=== PATIENT | male | born 1965 | race Caucasian/White ===

== ENCOUNTER 2021-10-04 17:54 | Inpatient (IN) | payer MEDICAID ==
[~2021-10-04] VITALS: Ht 160 cm; Wt 83.5 kg
[2021-10-04 20:10] VITALS: BP 147/76
--- NOTE | 2021-10-04 20:20 | NUR ---
RN NOTES PT RECEIVED IN RM 324-1 FROM [facility] WITH MILES TWO PERSONEL ASSIST.PT CAME FROM [facility] AAOX[facility].NEHEMIAS WELL ON RM AIR NO SIGN SOB/DISTRESS NOTED.BREATHING EVEN AND UNLABORED.NO COMPLAINE OF PAIN/DISCOMFORT AT THIS TIME.URDU SPEAKING.IV ACCESS RA 20G.PATENT AND INTACT.PT REORIENT THE RM AND VERBALLIZE UNDERSTANDING.KEPT PT COMFORTABLE HOB ELEVATED.CALL LIGHT WITHIN REACH.BED LOW AND LOCKED POSITION.WILL CONTINUE TO MONITOR.
[2021-10-04] MEDS ORDERED: METF-440 PO (21:41)
[2021-10-04] MEDS ORDERED: HYDROCODONE/APAP 10/325MG TABLET PO PRN (22:00)
[2021-10-04] MEDS ORDERED: MAGNESIUM HYDROXIDE 30 ML UDC PO PRN (22:00)
[2021-10-04] MEDS ORDERED: DEXTROSE 50%-WATER 50 ML DISP.SYRIN IV PRN (22:00)
[2021-10-04] MEDS ORDERED: ACETAMINOPHEN 325 MG TABLET PO PRN (22:00)
[2021-10-04] MEDS ORDERED: ZOLPIDEM TARTRATE 5 MG TABLET PO PRN (22:00)
[2021-10-04] MEDS ORDERED: Z GUARD REMEDY 4 OZ OINT TP PRN (22:00)
[2021-10-04] MEDS ORDERED: MAG HYDROX/AL HYDROX/SIMETH 30 ML UDC PO PRN (22:00)
[2021-10-04] MEDS: IV NS 0.9% 1,000 ML IV PRN (22:02)
[2021-10-04] MEDS: *INSULIN REGULAR(HUMULIN R)HUM 100 UNIT/ML VIAL SQ PRN (23:17)
[2021-10-04] MEDS: BLOOD SUGAR DIAGNOSTIC 1 EACH STRIP VI SCH (23:18)
[2021-10-04] MEDS ORDERED: VANCOMYCIN 1.5 GM in IV D5W 500ml IV ONE (23:30)
[2021-10-04] MEDS ORDERED: PIPERACILLIN /TAZOBACTAM 3.375 G VIAL IV ONE (23:35)
[2021-10-04] MEDS ORDERED: VANCOMYCIN 1 GM VIAL ONE ×2 (23:36→23:37)
[2021-10-04] MEDS: ONDANSETRON HCL/PF 4 MG/2 ML VIAL IVP PRN (23:38)
[2021-10-05] MEDS: PIPERACILLIN /TAZOBACTAM 3.375 G in IV D5W 50 ML IV SCH ×5 (00:05→23:12)
[2021-10-05] MEDS ORDERED: PIPERACILLIN /TAZOBACTAM 3.375 G VIAL IV ONE (05:17)
--- NOTE | 2021-10-05 05:45 | NUR ---
RN CLOSING NOTES PT IN BED SLEEPING NEHEMIAS WELL ON RM AIR SATING 98% NO SIGN SOB/DISTRESS NOTED.BREATHING EVEN AND UNLABORED.NO COMPLAIN OF PAIN/DISCOMFORT.ALL DUE MEDS GIVEN PO ORDER.ALL NEEDS ATTENTED.IV SITE ON RA G20 PATENT AND INTACT.CALL LIGHT WITHIN REACH.WILL ENDORSED TO NEXT SHIFT.
[2021-10-05] MEDS: ONDANSETRON HCL/PF 4 MG/2 ML VIAL IVP PRN ×4 (06:13→17:26)
[2021-10-05] MEDS: *INSULIN REGULAR(HUMULIN R)HUM 100 UNIT/ML VIAL SQ PRN ×2 (06:38→21:40)
[2021-10-05 06:39] LABS: BASOPHILS % (AUTO) 0.2 % (0.0-2.0); HEMATOCRIT 37 % (39-51); HEMOGLOBIN 12.2 g/dL (13.5-17.5); LYMPHOCYTES % (AUTO) 7.6 % (20.0-44.0); MEAN CORPUSCULAR HGB CONC 33 g/dl (31.0-36.0); MEAN CORPUSCULAR VOLUME 88 fL (80-96); MONOCYTES # (AUTO) 0.7 K/uL (0.1-1.30); MONOCYTES % (AUTO) 5.4 % (2.0-12.0); NEUTROPHILS # (AUTO) 11.6 K/uL (1.8-8.9); NEUTROPHILS % (AUTO) 86.8 % (43.0-81.0); PLATELET COUNT (AUTO) 256 K/uL (150-450); RED BLOOD CELL COUNT(AUTO) 4.15 MIL/uL (4.5-6.0); WHITE BLOOD COUNT (AUTO) 13.3 K/uL (4.3-11.0)
[2021-10-05 07:21] LABS: CALCIUM, SERUM 9.2 mg/dL (8.5-10.1); CREATININE 0.8 mg/dL (0.6-1.3); MAGNESIUM 2.2 mg/dL (1.8-2.4); POTASSIUM 3.9 mmol/L (3.5-5.1)
--- NOTE | 2021-10-05 07:30 | NUR ---
RN MS NOTES PT IN BED, AWAKE, ALERT AND ORIENTED, NO COMPLAINT OF PAIN, NOT IN DISTRESS, CALL LIGHT WITHIN REACH, LEFT FOOT DRESSING DRY AND INTACT, NO BLEEDING OR DISCHARGE NOTED, NEEDS ATTENDED.
[2021-10-05 08:00] VITALS: BP 145/78
--- NOTE | 2021-10-05 09:13 | NUR ---
WOUND CARE CONSULT: REVIEWED CHART, NURSING DOCUMENTATION AND DISCUSSED WITH NURSING STAFF AND PSYCHIATRIC ORDERLY. PT WAS TRANSFERRED FROM OUTSIDE HOSPITAL. DR FIELDS NOTIFIED OF DPM CONSULT. DISCUSSED SKIN PROTECTION WITH NURSING STAFF. MD IN AGREEMENT WITH PLAN OF CARE.
[2021-10-05] MEDS: BLOOD SUGAR DIAGNOSTIC 1 EACH STRIP VI SCH ×4 (09:46→21:40)
[2021-10-05] MEDS: VANCOMYCIN 1 GM in IV D5W 250 ML IV SCH ×2 (10:24→18:15)
[2021-10-05] MEDS: INSULIN REGULAR, HUMAN 100 UNIT/ML 3 ML VIAL SQ PRN ×2 (12:27→18:17)
[2021-10-05 16:00] VITALS: BP 182/90
[2021-10-05] MEDS: IV NS 0.9% 1,000 ML IV PRN (18:25)
--- NOTE | 2021-10-05 19:00 | NUR ---
RN MS NOTES PT IN BED, RESTING, NO COMPLAINT OF PAIN OR ANY DISCOMFORT, RESPIRATIONS NORMAL, CALL LIGHT WITHIN REACH, WITH EPISODES OF N/V, ZOFRAN GIVEN ORDERED WITH HELP, IV FLUIDS INFUSING WELL, FOR LEFT 2ND TOE AMPUTATION TOMORROW, PT INFORMED AND CONSENTS SIGNED, ALL NEEDS ATTENDED.
--- NOTE | 2021-10-05 19:36 | NUR ---
MS RN OPENING NOTES PATIENT RECEIVED RESTING IN BED COMFORTABLY, A/OX2-3 MALIAN SPEAKING; PATIENT REPORTING NAUSEA/VOMITING INTERMITTENTLY THROUGHOUT HOSPITALIZATION; PATIENT POSSIBLE PROCEDURE TOMORROW AM; WILL FOLLOW UP. R HAND #20G INTACT AND PATENT, FLUSHING WELL; NO S/S OF REDNESS OF INFILTRATION NOTED; SAFETY PRECAUTIONS IMPLEMENTED; BED LOCKED IN LOW POSITION; SIDE RAILSX2; CALL LIGHT WITHIN REACH, WILL CONT PLAN OF CARE
[2021-10-05 20:00] VITALS: BP 157/83
[2021-10-05 20:46] LABS: BILIRUBIN,URINE SMALL (NEGATIVE); COLOR,URINE YELLOW (YELLOW); LEUKOCYTE ESTERASE ,URINE NEGATIVE (NEGATIVE); NITRITE, URINE NEGATIVE (NEGATIVE); PROTEIN,URINE 100 mg/dl (NEGATIVE); UGLUCOSE 500 MG/DL mg/dL (NEGATIVE); UROBILINOGEN,URINE 0.2 EU/dL (0.2)
[2021-10-05 21:16] LABS: BACTERIA,URINE Few /HPF (None Seen); SQUAMOUS EPITHELIAL CELL,UR Rare /HPF (None Seen); WBC,URINE 0-2 /HPF (0-3)
[2021-10-05 21:17] LABS: URINE AMORPHOUS URATE Many /HPF (None Seen)
[2021-10-05] MEDS: ATORVASTATIN 40 MG TABLET PO SCH (21:23)
--- NOTE | 2021-10-05 21:41 | NUR ---
MS RN NOTE PATIENT BLOOD SUGAR 208, PATIENT TO BE NPO MIDNIGHT FOR POSSIBLE PROCEDURE IN AM; PATIENT UNABLE TO TOLERATE PO INTAKE D/T NAUSEA AND VOMITING; NO COVERAGE GIVEN; PATIENT RECEIVING IVF, TOLERATING WELL; CHARGE NURSE MADE AWARE
--- NOTE | 2021-10-05 21:53 | NUR ---
MS RN NOTE PATIENT HAS BEEN EXPERIENCING INTERMITTENT NAUSEA AND VOMITING SINCE ADMISSION; PATIENT HAS BEEN RECEIVING ZOFRAN Q6HR WITH MINIMAL RELIEF; CHARGE NURSE MADE AWARE, SPOKE WITH EMMANUEL LAUREN REGARDING PATIENT SITUATION; PER SAMPLE DISPLAY PREPARER OKAY FOR REGLAN 10MG IV Q6HR PRN, ORDERS RECEIVED AND CARRIED OUT
[2021-10-05] MEDS ORDERED: METOCLOPRAMIDE HCL 10 MG/2 ML VIAL IV PRN (22:00)
[2021-10-06] VITALS (11 sets, daily range): BP systolic 122–177; BP diastolic 62–93
[2021-10-06] MEDS: VANCOMYCIN 1 GM in IV D5W 250 ML IV SCH ×2 (01:47→11:17)
[2021-10-06] MEDS: PIPERACILLIN /TAZOBACTAM 3.375 G in IV D5W 50 ML IV SCH ×4 (05:03→23:53)
[2021-10-06] MEDS: INSULIN REGULAR, HUMAN 100 UNIT/ML 3 ML VIAL SQ PRN ×2 (06:31→18:02)
[2021-10-06] MEDS: BLOOD SUGAR DIAGNOSTIC 1 EACH STRIP VI SCH ×4 (06:31→22:42)
[2021-10-06 06:38] LABS: BASOPHILS % (AUTO) 0.2 % (0.0-2.0); HEMATOCRIT 38 % (39-51); HEMOGLOBIN 12.9 g/dL (13.5-17.5); LYMPHOCYTES # (AUTO) 1.2 K/uL (0.8-4.8); LYMPHOCYTES % (AUTO) 9.5 % (20.0-44.0); MEAN CORPUSCULAR HGB CONC 34 g/dl (31.0-36.0); MEAN CORPUSCULAR VOLUME 87 fL (80-96); MONOCYTES # (AUTO) 0.7 K/uL (0.1-1.30); MONOCYTES % (AUTO) 5.5 % (2.0-12.0); NEUTROPHILS # (AUTO) 11.2 K/uL (1.8-8.9); NEUTROPHILS % (AUTO) 84.8 % (43.0-81.0); PLATELET COUNT (AUTO) 296 K/uL (150-450); RED BLOOD CELL COUNT(AUTO) 4.32 MIL/uL (4.5-6.0); WHITE BLOOD COUNT (AUTO) 13.2 K/uL (4.3-11.0)
--- NOTE | 2021-10-06 06:51 | NUR ---
MS RN CLOSING NOTES PATIENT RESTING IN BED COMFORTABLY, A/OX2-3, MALAWIAN SPEAKING; PATIENT STILL EXPERIENCING NAUSEA AND VOMITING THROUGHOUT SHIFT WITH MINIMAL RELIEF FROM REGLAN AND ZOFRAN; PROCEDURE SCHEDULED 1300, WILL FOLLOW UP. R HAND #20G INTACT AND PATENT, FLUSHING WELL; NO S/S OF REDNESS OF INFILTRATION NOTED; ALL NEEDS RENDERED; SAFETY PRECAUTIONS IMPLEMENTED; BED LOCKED IN LOW POSITION; SIDE RAILSX2; CALL LIGHT WITHIN REACH, WILL ENDORSE ANAM TO ONCOMING SHIFT
[2021-10-06 07:13] LABS: CALCIUM, SERUM 9.6 mg/dL (8.5-10.1); CREATININE 0.8 mg/dL (0.6-1.3); MAGNESIUM 2.2 mg/dL (1.8-2.4); PHOSPHORUS 2.7 mg/dL (2.5-4.9); POTASSIUM 3.4 mmol/L (3.5-5.1)
--- NOTE | 2021-10-06 07:30 | NUR ---
RN MS NOTES PT IN BED, AWAKE, ALERT AND ORIENTED, NO COMPLAINT OF PAIN, NOT IN DISTRESS, CALL LIGHT WITHIN REACH, NO EPISODE OF NAUSEA OR VOMITING AT THIS TIME, KEPT NPO FOR TODAY'S SURGERY, LEFT FOOT DRESSING DRY AND INTACT, NO BLEEDING OR DISCHARGE NOTED, NEEDS ATTENDED.
[2021-10-06] MEDS: GLUCERNA SHAKE 237 ML CAN PO SCH (09:00)
[2021-10-06] MEDS: POTASSIUM CL. PREMIX PERIPHER. 50 ML IV SCH ×2 (10:11→15:54)
[2021-10-06] MEDS: hydrALAZINE HCL IV 20 MG VIAL IV PRN (10:54)
--- NOTE | 2021-10-06 10:55 | NUR ---
RN MS NOTES NOTED PT WITH ELEVATED BP 173/92 HR 80, DR. CASTELLON INFORMED, PT NOT COMPLAINING OF PAIN OR ANY DISCOMFORT, ORDERS GIVEN, NOTED AND CARRIED OUT, WILL CONTINUE TO MONITOR.
[2021-10-06] MEDS: METOCLOPRAMIDE HCL 10 MG/2 ML VIAL IV SCH ×3 (11:17→23:50)
[2021-10-06] MEDS ORDERED: ANESTHESIA TRAY IN PYXIS 1 EA TRAY MC ONE (12:00)
[2021-10-06] MEDS ORDERED: BUPIVACAINE 0.5 % PF 150 MG/30 ML VIAL ONE (12:00)
[2021-10-06] MEDS ORDERED: LIDOCAINE 1% INJ 50 ML MDV IJ ONE (12:00)
--- NOTE | 2021-10-06 13:03 | NUR ---
RN MS NOTES REASSESSED PT'S BP AFTER HYDRALAZINE 168/81 HR 84, DR. MURRAY INFORMED AND SAID THAT PT IS OK TO GO TO [facility] FOR [facility]GERY, PT IS PICKED UP BY [facility] STAFF VIA BED IN STABLE CONDITION.
[2021-10-06] MEDS ORDERED: FENTANYL PF 100MCG/2ML AMPUL ONE ×2 (13:13→15:06)
--- NOTE | 2021-10-06 15:48 | NUR ---
RN MS NOTE PATIENT RETURN TO UNIT @ 1540, POST-OP, VIA BED. AWAKE AND ALERT UPON RETURN. NO S/SX OF DISTRESS, SOB. WILL CONTINUE TO MONITOR.
[2021-10-06] MEDS: VANCOMYCIN 1.25 GM in IV D5W 250 ML IV SCH (18:51)
--- NOTE | 2021-10-06 19:14 | NUR ---
RN MS CLOSING NOTES PATIENT CURRENTLY RESTING IN BED. NO C/O PAIN TO SURGICAL SITE (LEFT 2ND TOE). NO S/SX OF DISTRESS. NO C/O NAUSEA AND SOB. DRESSING TO SURGICAL SITE IS CLEAN AND DRY WITH NO SIGN OF BLEEDING & REMAINS ELEVATED. iv SITE PATENT AND FLOWING WELL. REMAINS ON IV ATB TREATMENT. TOLERATED WELL ON SHIFT WITH NO ADVERSE REACTIONS TO MEDICATIONS. VITALS CURRENTLY STABLE. SAFETY MEASURE REMAIN IN PLACE. BED IN LOWEST POSITION, WITH BRAKES LOCKED AND SIDERAILS UP X2. CALL LIGHT WITHIN REACH.
--- NOTE | 2021-10-06 19:48 | NUR ---
MS/TELE/RN RECEIVE PATIENT LYING IN BED APPEARS SLEEPING, APPEARS COMFORTABLE, NO SIGNS OF DISTRESS NOTED, IVF INFUSING, CALL LIGHT IN REACH, FALL PRECAUTIONS PER PROTOCOL IMPLEMENTED, WILL MONITOR.
[2021-10-06] MEDS: ATORVASTATIN 40 MG TABLET PO SCH (22:43)
[2021-10-06] MEDS: *INSULIN REGULAR(HUMULIN R)HUM 100 UNIT/ML VIAL SQ PRN (22:46)
--- NOTE | 2021-10-07 01:10 | NUR ---
MS/TELE/RN PATIENT WAS AWAKE AT AROUND 22:30, PATIENT WAS ALERT AND ORIENTED, ACCU CHEC WAS DONE, DUE MEDS WERE GIVEN. PATIENT IS SLEEPING AT THIS TIME, APPEAR COMFORTABLE, NO SIGNS OF DISTRESS NOTED, CALL LIGHT IN REACH, WILL CONTINUE TO MONITOR.
[2021-10-07] MEDS: VANCOMYCIN 1.25 GM in IV D5W 250 ML IV SCH ×3 (02:29→17:37)
[2021-10-07] MEDS: METOCLOPRAMIDE HCL 10 MG/2 ML VIAL IV SCH ×4 (05:44→23:43)
[2021-10-07] MEDS: PIPERACILLIN /TAZOBACTAM 3.375 G in IV D5W 50 ML IV SCH ×4 (05:44→23:43)
--- NOTE | 2021-10-07 06:02 | NUR ---
MS/TELE/RN PATIENT IS AWAKE, COMFORTABLE, NO SIGNS OF DISTRESS NOTED, CALL LIGHT IN REACH, ALL NEEDS ATTENDED AT THIS TIME, WILL CONTINUE TO MONITOR.
[2021-10-07] MEDS: INSULIN REGULAR, HUMAN 100 UNIT/ML 3 ML VIAL SQ PRN ×3 (06:41→17:42)
[2021-10-07 06:46] LABS: HEMATOCRIT 36 % (39-51); LYMPHOCYTES # (AUTO) 1.1 K/uL (0.8-4.8); LYMPHOCYTES % (AUTO) 8.5 % (20.0-44.0); MEAN CORPUSCULAR HGB CONC 34 g/dl (31.0-36.0); MEAN CORPUSCULAR VOLUME 88 fL (80-96); MONOCYTES # (AUTO) 0.8 K/uL (0.1-1.30); MONOCYTES % (AUTO) 6.2 % (2.0-12.0); NEUTROPHILS # (AUTO) 11.3 K/uL (1.8-8.9); NEUTROPHILS % (AUTO) 85.3 % (43.0-81.0); PLATELET COUNT (AUTO) 313 K/uL (150-450); RED BLOOD CELL COUNT(AUTO) 4.08 MIL/uL (4.5-6.0); WHITE BLOOD COUNT (AUTO) 13.2 K/uL (4.3-11.0)
[2021-10-07] MEDS: BLOOD SUGAR DIAGNOSTIC 1 EACH STRIP VI SCH ×2 (06:52→12:12)
[2021-10-07 07:08] LABS: CREATININE 0.9 mg/dL (0.6-1.3); MAGNESIUM 2.3 mg/dL (1.8-2.4); POTASSIUM 3.8 mmol/L (3.5-5.1)
--- NOTE | 2021-10-07 07:30 | NUR ---
RN MS OPENING NOTES RECEIVED PATIENT SLEEPING COMFORTABLY, A/O X 4 & ARABIC SPEAKER ONLY. NO C/O PAIN TO SURGICAL SITE (LEFT 2ND TOE), CLEAN, DRY, AND INTACT. NO S/SX OF DISTRESS, SOB, AND CHEST PAIN. DRESSING TO SURGICAL SITE IS CLEAN AND DRY WITH NO SIGN OF BLEEDING & REMAINS ELEVATED. iv SITE PATENT AND FLOWING WELL. REMAINS ON IV ATB TREATMENT. TOLERATED WELL ON SHIFT WITH NO ADVERSE REACTIONS TO MEDICATIONS. VITALS CURRENTLY STABLE. SAFETY MEASURE REMAIN IN PLACE. BED IN LOWEST POSITION, WITH BRAKES LOCKED AND SIDERAILS UP X2. CALL LIGHT WITHIN REACH. WILL CONTINUE TO MONITOR FOR ANAM.
[2021-10-07 08:22] VITALS: BP 147/77
[2021-10-07] MEDS: GLUCERNA SHAKE 237 ML CAN PO SCH (09:16)
[2021-10-07] MEDS: ONDANSETRON HCL/PF 4 MG/2 ML VIAL IVP PRN ×2 (09:41→19:35)
[2021-10-07] MEDS: IV NS 0.9% 1,000 ML IV PRN (12:25)
[2021-10-07 15:47] VITALS: BP 169/79
[2021-10-07] MEDS ORDERED: K PHOS NEUTRAL 250 MG TABLET PO ONE (16:00)
[2021-10-07] MEDS ORDERED: DEXTROSE 50%-WATER 50 ML DISP.SYRIN IV PRN (17:30)
[2021-10-07] MEDS: BLOOD SUGAR DIAGNOSTIC 1 EACH STRIP IN SCH ×2 (17:34→22:35)
[2021-10-07] MEDS ORDERED: VANCOMYCIN 1.25 GM in IV D5W 250 ML IV SCH (19:30)
--- NOTE | 2021-10-07 19:35 | NUR ---
RN NOTES ADMINISTERED ZOFRAN FOR NAUSEA PER PT REQUEST. WILL CONTINUE TO MONITOR.
--- NOTE | 2021-10-07 19:56 | NUR ---
RN MS CLOSING NOTES PATIENT IS LYING DOWN COMFORTABLY, A/O X 4 & ARABIC SPEAKER ONLY. NO C/O PAIN TO SURGICAL SITE (LEFT 2ND TOE), CLEAN, DRY, AND INTACT. NO S/SX OF DISTRESS, SOB, AND CHEST PAIN. DRESSING TO SURGICAL SITE IS CLEAN AND DRY WITH NO SIGN OF BLEEDING & REMAINS ELEVATED. iv SITE PATENT AND FLOWING WELL. REMAINS ON IV ATB TREATMENT. TOLERATED WELL ON SHIFT WITH NO ADVERSE REACTIONS TO MEDICATIONS. VITALS CURRENTLY STABLE. SAFETY MEASURE REMAIN IN PLACE. BED IN LOWEST POSITION, WITH BRAKES LOCKED AND SIDERAILS UP X2. CALL LIGHT WITHIN REACH. WILL ENDORSE TO INCOMING SHIFT FOR ANAM.
[2021-10-07 20:00] VITALS: BP 154/80
--- NOTE | 2021-10-07 20:09 | NUR ---
RN OPENING NOTES RECEIVED PT IN BED, AWAKE, FAMILY AT BEDSIDE. AOx4, [place] SPEAKING AND ABLE TO MAKE NEEDS KNOWN. ON RA AND TOLERATING WELL. NO SOB NOTED. NO S/SX OF RESPIRATORY DISTRESS NOTED. IV ACCESS IN R WRIST #20G RUNNING NS @ 75 ML/HR. SAFETY PRECAUTIONS IN PLCACE: BED IN LOWEST, LOCKED POSITION, SIDERAILS UPx2, AND BRAKES ON. TABLE AND CALL LIGHT WITHIN REACH. WILL CONTINUE TO MONITOR.
[2021-10-07] MEDS ORDERED: INSULIN GLARGINE, 100 UNIT/ML CARTRIDGE SQ SCH (22:00)
[2021-10-07] MEDS: ATORVASTATIN 40 MG TABLET PO SCH (22:35)
[2021-10-08] MEDS: IV NS 0.9% 1,000 ML IV PRN ×2 (01:32→19:02)
[2021-10-08] MEDS: ONDANSETRON HCL/PF 4 MG/2 ML VIAL IVP PRN (02:49)
[2021-10-08] MEDS: METOCLOPRAMIDE HCL 10 MG/2 ML VIAL IV SCH ×4 (05:20→23:03)
[2021-10-08] MEDS: PIPERACILLIN /TAZOBACTAM 3.375 G in IV D5W 50 ML IV SCH ×3 (05:26→17:09)
[2021-10-08] MEDS: BLOOD SUGAR DIAGNOSTIC 1 EACH STRIP IN SCH ×4 (06:34→21:31)
[2021-10-08] MEDS: INSULIN REGULAR, HUMAN 100 UNIT/ML 3 ML VIAL SQ PRN (06:35)
[2021-10-08 06:43] LABS: CALCIUM, SERUM 8.6 mg/dL (8.5-10.1); CREATININE 0.6 mg/dL (0.6-1.3); POTASSIUM 3.4 mmol/L (3.5-5.1)
--- NOTE | 2021-10-08 06:50 | NUR ---
RN CLOSING NOTES PT IN BED, ASLEEP, AWEKSNS TO VERBAL STIMULI. AOx4, JAPANESE SPEAKING AND ABLE TO MAKE NEEDS KNOWN. ON RA AND TOLERATING WELL. NO SOB NOTED. NO S/SX OF RESPIRATORY DISTRESS NOTED. IV ACCESS IN R WRIST #20G RUNNING NS @ 75 ML/HR. ALL ORDERS CARRIED OUT. ALL NEEDS MET. PT KEPT CLEAN AND DRY. TREATED NAUSEA AND VOMITING THROUGHOUT SHIFT. SAFETY PRECAUTIONS IN PLCACE: BED IN LOWEST, LOCKED POSITION, SIDERAILS UPx2, AND BRAKES ON. TABLE AND CALL LIGHT WITHIN REACH. WILL ENDORSE TO ONCOMING SHIFT FOR NAAM.
--- NOTE | 2021-10-08 07:40 | NUR ---
MS RN OPENING NOTES RECEIVED PATIENT IN BED, AWAKE, A/Ox4, KYRGY[place] SPEAKING AND ABLE TO MAKE NEEDS KNOWN. ON ROOM AIR; NO SIGNS OF RESPIRATORY DISTRESS OR SOB NOTED. NO COMPLAINS OF PAIN. IV ACCESS IN R WRIST #20G RUNNING NS @ 75 ML/HR. SAFETY PRECAUTIONS IN PLACE: BED IN LOW POSITION AND LOCKED, RAILS UPPX2, CALL LIGHT WITHIN REACH. WILL CONTINUE TO MONITOR PATIENT.
[2021-10-08] MEDS: GLUCERNA SHAKE 237 ML CAN PO SCH (08:05)
[2021-10-08] MEDS: METFORMIN 500 MG TABLET PO SCH ×2 (08:05→16:00)
[2021-10-08 08:48] VITALS: BP 170/83
--- NOTE | 2021-10-08 08:55 | NUR ---
WOUND CARE CONSULT/FOLLOW UP: PT PRESENTS WITH SKIN TEAR TO RT ELBOW. RECOMMENDATIONS MADE FOR SKIN PROTECTION AND WOUND CARE DISCUSSED WITH NURSING STAFF. MD IN AGREEMENT WITH PLAN OF CARE.
[2021-10-08] MEDS: VANCOMYCIN 1.25 GM in IV D5W 250 ML IV SCH ×2 (09:53→21:54)
[2021-10-08] MEDS ORDERED: POTASSIUM CHLORIDE 20 MEQ TAB.PRT.SR PO SCH (10:00)
[2021-10-08 15:53] VITALS: BP 180/88
[2021-10-08] MEDS: hydrALAZINE HCL IV 20 MG VIAL IV PRN (15:56)
--- NOTE | 2021-10-08 15:56 | NUR ---
MS RN NOTES PATIENT NOTED WITH HIGH BP 170/83. PRN HYDRALAZINE ADMINISTERED.
[2021-10-08] MEDS ORDERED: K PHOS NEUTRAL 250 MG TABLET PO ONE (16:00)
--- NOTE | 2021-10-08 18:51 | NUR ---
MS RN CLOSING NOTES PATIENT REMAINS IN BED, AWAKE, A/Ox3 TO 4, MALDIVIAN SPEAKING AND ABLE TO MAKE NEEDS KNOWN. ON ROOM AIR; NO SIGNS OF RESPIRATORY DISTRESS OR SOB NOTED DURING THE DAY. NO COMPLAINS OF PAIN. KEEPS VOMITING FROM TIME TO TIME. IV ACCESS IN R WRIST #20G RUNNING NS @ 75 ML/HR. ALL NEEDS ATTENDED DURING THE DAY. SAFETY PRECAUTIONS IN PLACE: BED IN LOW POSITION AND LOCKED, RAILS UPPX2, CALL LIGHT WITHIN REACH. WILL ENDORSE TO CRISIS SPECIALIST NURSE FOR ANAM.
[2021-10-08 20:00] VITALS: BP 169/89
[2021-10-08] MEDS: *INSULIN REGULAR(HUMULIN R)HUM 100 UNIT/ML VIAL SQ PRN (21:42)
--- NOTE | 2021-10-08 21:42 | NUR ---
ACCU CHECK 239mg/dl Given 4units insulin per sliding scale parameters.
[2021-10-08] MEDS: ATORVASTATIN 40 MG TABLET PO SCH (21:49)
[2021-10-08] MEDS ORDERED: INSULIN GLARGINE, 100 UNIT/ML CARTRIDGE SQ SCH (22:00)
[2021-10-09] MEDS: PIPERACILLIN /TAZOBACTAM 3.375 G in IV D5W 50 ML IV SCH ×4 (00:07→17:37)
[2021-10-09 00:22] VITALS: BP 148/76
[2021-10-09] MEDS: ONDANSETRON HCL/PF 4 MG/2 ML VIAL IVP PRN (01:31)
[2021-10-09] MEDS: METOCLOPRAMIDE HCL 10 MG/2 ML VIAL IV SCH ×3 (05:13→17:10)
--- NOTE | 2021-10-09 05:39 | NUR ---
END OF SHIFT REPORT Patient is A/O x3 Cooperative and compliant with treatment. Left foot dressing C/D/I. Denies pain. On Clear liquids. Episodes of N/V. Emesis clear liquids, on IV Reglan. IVF infusing, on IV Abx. Afebrile during the shift. Bld glucose per insulin parameters. Plan Abx x 2weeks per ID. Will endorse to oncoming RN.
[2021-10-09] MEDS: BLOOD SUGAR DIAGNOSTIC 1 EACH STRIP IN SCH ×4 (06:23→21:38)
[2021-10-09] MEDS: INSULIN REGULAR, HUMAN 100 UNIT/ML 3 ML VIAL SQ PRN ×3 (06:25→18:00)
--- NOTE | 2021-10-09 06:25 | NUR ---
ACCU CHECK 189 mg/dl Given 4units insulin per sliding scale parameters, co-signed by VIELKA Kinney.
[2021-10-09 06:50] LABS: CALCIUM, SERUM 8.9 mg/dL (8.5-10.1); CREATININE 0.6 mg/dL (0.6-1.3); PHOSPHORUS 1.8 mg/dL (2.5-4.9)
[2021-10-09 07:01] LABS: POTASSIUM 2.8 mmol/L (3.5-5.1)
--- NOTE | 2021-10-09 07:30 | NUR ---
RN MS OPENING NOTES RECEIVED PT IN BED, AWAKE, ALERT AND ORIENTED. NO C/O PAIN OR DISTRESS REPORTED OR OBSERVED. CALL LIGHT OBSERVED WITHIN REACH. NO EPISODE OF NAUSEA/VOMITING AT THIS TIME. DIET ADVANCED FROM NPO STATUS TO CLEAR LIQUIDS. SURGICAL SITE REMAINS CLEAN, DRY & FREE OF BLEEDING. WILL CONTINUE TO MONITOR.
[2021-10-09] MEDS ORDERED: POTASSIUM CHLORIDE 20 MEQ POWDER PACKET PO ONE (09:00)
[2021-10-09] MEDS: GLUCERNA SHAKE 237 ML CAN PO SCH (09:00)
[2021-10-09] MEDS: METFORMIN 500 MG TABLET PO SCH ×2 (09:16→17:10)
[2021-10-09] MEDS ORDERED: NEUTRA PHOS 1 POWD.PACKET PO ONE (09:30)
[2021-10-09] MEDS: VANCOMYCIN 1.25 GM in IV D5W 250 ML IV SCH (10:37)
[2021-10-09] MEDS: IV NS 0.9% 1,000 ML IV PRN (16:15)
[2021-10-09] MEDS: VANCOMYCIN 1 GM in IV D5W 250 ML IV SCH (17:17)
--- NOTE | 2021-10-09 18:25 | NUR ---
MS RN CLOSING NOTES PATIENT REMAINED IN BED THROUGHOUT SHIFT. OBSERVED AWAKE & INTERMITTENTLY SLEEPING. CONTINUES TO BE A/Ox3 TO 4 AND UKRAINIAN SPEAKING. AND ABLE TO MAKE NEEDS KNOWN. CONTINUES ON ON ROOM AIR WITH NO SIGNS OF RESPIRATORY DISTRESS OR SOB OBSERVED OR REPORTED. MIDLINE 18G IV PLACED ON SHIFT IN LEFT ARM. PATENT AND RUNNING WELL. IV ACCESS TO RIGHT HAND REMAINS INTACT, AND PATENT. AFFECTED SURGICAL SITE CLEANED & RE-PACKED WITH DRESSING CHANGED PER ORDER ON SHIFT. CONTINUES TO HAVE INTERMITTENT EPISODES OF NAUSEA FOLLOWED BY SMALL AMOUNTS OF EMESIS. TOLERATED NEW CLEAR LIQUID DIET WELL. SAFETY PRECAUTIONS REMAIN IN PLACE WITH BED IN LOW POSITION AND LOCKED, SIDERAILS UPX2, AND CALL-LIGHT WITHIN REACH. WILL CONT TO MONITOR.
--- NOTE | 2021-10-09 19:40 | NUR ---
MS RN OPENING NOTES RECEIVED PT LYING IN BED ASLEEP, EASY TO AROUSE. A/O X3. SLOVENIAN SPEAKING. BREATHING EVEN AND NON-LABORED ON ROOM AIR. DENIES PAIN AND NAUSEA AT THIS TIME. HAS LEFT UPPER ARM MIDLINE #18G WITH VANCO RUNNING AT 125 ML/HR AND RIGHT WRIST IV ACCESS #20G WITH NS RUNNING AT 75 ML/HR. NO S/S OF INFILTRATION NOTED. LEFT FOOT WOUND DRESSING C/D/I. SAFETY PRECAUTIONS IN PLACE. WILL CONTINUE PLAN OF CARE.
[2021-10-09 20:00] VITALS: BP 130/70
--- NOTE | 2021-10-09 21:36 | NUR ---
MS RN NOTES BS 101, NO LANTUS GIVEN. PT IS CURRENTLY ON CLEAR LIQUID DIET.
[2021-10-09] MEDS: ATORVASTATIN 40 MG TABLET PO SCH (21:38)
[2021-10-09] MEDS: *INSULIN REGULAR(HUMULIN R)HUM 100 UNIT/ML VIAL SQ PRN (21:39)
[2021-10-09] MEDS ORDERED: INSULIN GLARGINE, 100 UNIT/ML CARTRIDGE SQ SCH (22:00)
[2021-10-10] MEDS: METOCLOPRAMIDE HCL 10 MG/2 ML VIAL IV SCH ×3 (00:02→12:20)
[2021-10-10] MEDS: PIPERACILLIN /TAZOBACTAM 3.375 G in IV D5W 50 ML IV SCH ×2 (00:04→05:56)
[2021-10-10] MEDS: VANCOMYCIN 1 GM in IV D5W 250 ML IV SCH ×2 (01:59→09:00)
[2021-10-10 06:27] LABS: BASOPHILS % (AUTO) 0.2 % (0.0-2.0); EOSINOPHILS % (AUTO) 0.7 % (0.0-6.0); HEMATOCRIT 39 % (39-51); HEMOGLOBIN 13.5 g/dL (13.5-17.5); LYMPHOCYTES # (AUTO) 1.4 K/uL (0.8-4.8); LYMPHOCYTES % (AUTO) 16.5 % (20.0-44.0); MEAN CORPUSCULAR HGB CONC 35 g/dl (31.0-36.0); MEAN CORPUSCULAR VOLUME 86 fL (80-96); MONOCYTES # (AUTO) 0.6 K/uL (0.1-1.30); MONOCYTES % (AUTO) 7.1 % (2.0-12.0); NEUTROPHILS # (AUTO) 6.3 K/uL (1.8-8.9); NEUTROPHILS % (AUTO) 75.5 % (43.0-81.0); PLATELET COUNT (AUTO) 322 K/uL (150-450); RED BLOOD CELL COUNT(AUTO) 4.55 MIL/uL (4.5-6.0); WHITE BLOOD COUNT (AUTO) 8.4 K/uL (4.3-11.0)
[2021-10-10] MEDS: BLOOD SUGAR DIAGNOSTIC 1 EACH STRIP IN SCH ×2 (06:39→12:01)
[2021-10-10] MEDS: INSULIN REGULAR, HUMAN 100 UNIT/ML 3 ML VIAL SQ PRN ×2 (06:41→12:05)
--- NOTE | 2021-10-10 07:10 | NUR ---
MS RN CLOSING NOTES PT LYING IN BED AWAKE. A/O X3. MOH[place] SPEAKING. NO SOB OR NOTED, TOLERATING ROOM AIR WELL. NO C/O PAIN OR DISCOMFORT. AFEBRILE. PT ATE [employer], HE CLAIMS HE DOESN'T HAVE ANY NAUSEA OR DIFFICULTY SWALLOWING, ADVISED HE IS ON CLEAR LIQUID DIET. HAS LEFT UPPER ARM MIDLINE #18G WITH NS RUNNING AT 75 ML/HR AND RIGHT WRIST IV ACCESS #20G. INTACT, PATENT AND FLUSHING. LEFT FOOT WOUND DRESSING C/D/I. SAFETY PRECAUTIONS IN PLACE: BED LOW AND LOCKED, SIDE RAILS UP X2, CALL LIGHT WITHIN REACH.
[2021-10-10 07:17] LABS: CALCIUM, SERUM 8.9 mg/dL (8.5-10.1); CREATININE 0.6 mg/dL (0.6-1.3); MAGNESIUM 2.1 mg/dL (1.8-2.4); PHOSPHORUS 2.3 mg/dL (2.5-4.9)
--- NOTE | 2021-10-10 07:40 | NUR ---
MS RN OPENING NOTES RECEIVED PT LYING IN BED AWAKE. A/O X3. DANISH SPEAKING. BREATHING EVEN AND NON-LABORED ON ROOM AIR. DENIES PAIN AND NAUSEA AT THIS TIME. HAS LEFT UPPER ARM MIDLINE #18G WITH AND RIGHT WRIST IV ACCESS #20G WITH NS INFUSING AT 75 ML/HR. NO S/S OF INFILTRATION NOTED. LEFT FOOT WOUND DRESSING C/D/I. SAFETY PRECAUTIONS IN PLACE. WILL CONTINUE PLAN OF CARE.
[2021-10-10] MEDS ORDERED: POTASSIUM CHLORIDE 20 MEQ POWDER PACKET PO ONE (08:30)
[2021-10-10] MEDS: METFORMIN 500 MG TABLET PO SCH (08:54)
[2021-10-10] MEDS ORDERED: NEUTRA PHOS 1 POWD.PACKET PO ONE (09:30)
[2021-10-10] MEDS ORDERED: AMOX500C2 PO (12:42)
[2021-10-10] MEDS ORDERED: INSU100I30 SQ (12:42)
[2021-10-10] MEDS ORDERED: INSU100V28 SQ (12:42)
[2021-10-10] MEDS ORDERED: *INS REG3 SQ (12:42)
[2021-10-10] MEDS ORDERED: AMPICILLIN 1 GM in IV NS 0.9% 50 ML IV SCH (13:00)
--- NOTE | 2021-10-10 16:27 | NUR ---
GAS BRAZER NOTES REVIEWED DISCHARGE INSTRUCTIONS PRINTED IN SURINAMESE WITH PT AND RELATIVES. PT AND RELATIVES VERBALIZED UNDERSTANDING. PT DISCHARGED VIA WHEELCHAIR WITH PRESCRIPTIONS, BELONGINGS AND INSTRUCTIONS. IV LINE AND MIDLINE DISCONTINUED. PT LEFT HOSPITAL WITH RELATIVES TO HOME SELF CARE. V/S: BP 140/95, P 98, R 19, T 97.7, O2 SAT 97.
== END 2021-10-10 16:30 | disposition home or self-care (01) | DRG 314 ==
LOC: MED 20:11
PROVIDERS: ADMIT Nurse Practitioner Acute Care; ATTEND Nurse Practitioner Acute Care
PROC: 0QBR0ZZ Excision of Left Toe Phalanx, Open Approach (ICD-10-PCS; principal; 2021-10-05)
PROC: 0JBR0ZZ Excision of Left Foot Subcutaneous Tissue and Fascia, Open Approach (ICD-10-PCS; 2021-10-05)
PROC: 0Y6S0Z0 Detachment at Left 2nd Toe, Complete, Open Approach (ICD-10-PCS; 2021-10-06)
PROC: 05HC33Z Insertion of Infusion Device into Left Basilic Vein, Percutaneous Approach (ICD-10-PCS; 2021-10-09)
DX: E11.69 Type 2 diabetes mellitus with other specified complication (principal); M86.172 Other acute osteomyelitis, left ankle and foot; E11.40 Type 2 diabetes mellitus with diabetic neuropathy, unspecified; L03.116 Cellulitis of left lower limb; K76.0 Fatty (change of) liver, not elsewhere classified; L97.529 Non-pressure chronic ulcer of other part of left foot with unspecified severity; N30.90 Cystitis, unspecified without hematuria; K31.84 Gastroparesis; E11.65 Type 2 diabetes mellitus with hyperglycemia; E11.43 Type 2 diabetes mellitus with diabetic autonomic (poly)neuropathy; D72.829 Elevated white blood cell count, unspecified; E11.621 Type 2 diabetes mellitus with foot ulcer; E11.622 Type 2 diabetes mellitus with other skin ulcer; E78.5 Hyperlipidemia, unspecified; E66.9 Obesity, unspecified; Z68.32 Body mass index [BMI] 32.0-32.9, adult; I10 Essential (primary) hypertension; Z79.899 Other long term (current) drug therapy; Z79.84 Long term (current) use of oral hypoglycemic drugs
CPT/HCPCS: 36410; 36415; 71045-TC; 80048-TC; 80202-TC; 81001; 82962-TC; 83605-TC; 83735-TC; 84100-TC; 85025-TC; 85730-TC; 86850-TC; 87040-TC; 87070-TC; 87081-TC; 87086-TC; 87186-TC; 88305-TC; 88311-TC; A6253; A6403; A6407; G0378; J0290; J0330; J0360; J0690; J1100; J1815; J1885; J2405; J2543; J2704; J2765; J3010; J3370; J3480; J3490; J7030; J7060

== ENCOUNTER 2021-10-14 10:15 | Outpatient (CLI) | payer MEDICAID ==
[~2021-10-14 10:15] MED LIST: *INS REG3 SQ; AMOX500C2 PO; INSU100I30 SQ; INSU100V28 SQ; METF-440 PO
[2021-10-14] MEDS ORDERED: COLLAGENASE 5 GM TUBE UD TP ONE (10:54)
== END 2021-10-14 23:59 | disposition home or self-care (01) ==
LOC: WOU 10:15
PROVIDERS: ATTEND Podiatrist Foot & Ankle Surgery
DX: Z47.81 Encounter for orthopedic aftercare following surgical amputation (principal); T81.89XA Other complications of procedures, not elsewhere classified, initial encounter; E11.40 Type 2 diabetes mellitus with diabetic neuropathy, unspecified; Z89.412 Acquired absence of left great toe
CPT/HCPCS: 11043